=== PATIENT | female | born 1960 | race Caucasian/White ===

== ENCOUNTER 2023-12-27 14:03 | Emergency (ER) | payer OTHER, SELFPAY ==
[2023-12-27 14:30] VITALS: BP 154/73; PULSE 106; RESP 18; TEMP 37.1; O2SAT 100; BMI 19.7
--- NOTE | 2023-12-27 15:08 | ED_ITS ---
HPI - Animal Bite General Chief Complaint: Animal Bite Stated Complaint: dog bite on finger Time Seen by Provider: 12/27/23 17:01 Source: patient Mode of arrival: ambulatory Limitations: no limitations History of Present Illness HPI narrative: Patient is a 63-year-old right-hand dominant female presenting to the emergency department with complaint of dog bite to left middle finger. Patient states she was walking her small dog earlier today when a large dog came over and began attacking her dog. When patient attempted to help her dog, she was bit by the unknown dog. She brought her dog to the [facility] and states that the dog which bit her was taken by [place] animal control to be quarantined. She believes her tetanus is up-to-date within the last 2 years but will attempt to check her electronic medical records while in the ED. Complains of pain, tingling, and swelling to distal tip of left middle finger. Patient also reports abrasions to bilateral knees from falling to the ground during the in cident. MD complaint: animal bite Onset (ago): hour(s) Animal: dog Description of animal: unknown animal Mechanism: bite Location - Extremities: left: hand (3rd finger) Pain description: dull Context: other (unknown dog attacking patient's dog) Associated symptoms: bleeding Related Data Previous Rx's Medication Instructions Recorded amoxicillin 875 mg-potassium 1 tab PO BID #13 tabs 12/27/23 clavulanate 125 mg tablet Allergies Allergy/AdvReac Type Severity Reaction Status Date / Time No Known Allergies Allergy Verified 12/27/23 14:36 Review of Systems Review of Systems: As per HPI. Yes all other systems are reviewed and are negative Constitutional: Constitutional: Reports as per HPI [facility] Social History Social History Advance Directives: No Advance Directives Information Provided: No Physical Exam ED Vital Signs: Vital Signs - 24 hr 12/27/23 14:30 12/27/23 17:39 Temperature 98.8 F Pulse Rate 106 H 68 Respiratory Rate 18 14 Blood Pressure 154/73 H 107/68 Pulse Oximetry 100 99 Oxygen Delivery Method Room Air Room Air BMI result Body Mass Index 19.7 Vital signs have been reviewed and appear to be correct. Blood pressure elevated. Heart rate mildly tachycardic. Respiratory rate normal. Temperature normal. Oxygen saturation normal. Const General: cooperative, healthy appearing and no acute distress Orientation/consciousness: oriented to person, oriented to place, oriented to time and patient oriented x3 Limitations: no limitations HENMT Head: Yes normocephalic and Yes atraumatic Ears: external ears normal General nose exam: Normal external nose present Face and sinus: Yes face symmetric Mouth: oropharynx normal and moist mucous membranes Throat: Yes uvula midline Eyes Pupils: Equal, round and reactive pupils present Neck Neck: Yes normal visual inspection and Yes supple Resp Effort & Inspection: normal respiratory effort and able to speak in complete sentences Auscultation: clear to auscultation bilaterally Cardio Rate: regular rate Rhythm: regular rhythm Heart sounds: S1 normal heart sound present and S2 normal heart sound present GI Palpation (GI): Soft to palpation and nontender Auscultation: normoactive bowel sounds General: Yes no CVA tenderness Back/Spine/Pelvis Back: no CVA tenderness Skin General skin exam: elasticity normal and turgor normal Neuro General: oriented to person, oriented to place, oriented to time, patient oriented x3, moves all extremities, no focal motor deficits and CN's II-XI intact bilaterally Cranial nerves: Yes Equal, round and reactive pupils present Cognition (Neuro): normal cognition Extrem General: Yes full ROM, Yes no pedal edema and Yes no calf tenderness Left upper extremity: hand Details: neuromotor exam normal, neurosensory exam normal, normal ROM of fingers, swelling Location: of the 3rd digit Location: at the distal phalanx and puncture wound (radial and ulnar aspects of distal tip of 3rd finger) Psych Mental Status: mental status grossly normal Affect: normal affect Thought process: Normal thought process present Course Course Course Narrative: This is an RME: Additional HPI, ROS, PE not included below will be deferred to primary provider. Patient is a 63 old female who presents emergency department for evaluation of dog bite to left middle finger from unknown dog. Unaware of date of last tetanus vaccination. Medications Administered Discontinued Medications Generic Name Dose Route Start Last Admin Trade Name Freq PRN Reason Stop Dose Admin Amoxicillin/Clavulanate Potassium 875 mg 12/27/23 16:49 12/27/23 17:26 Amoxicillin/Potassium Clav 875 Mg Tablet PO 12/27/23 16:50 875 mg ONCE ONE Administration Medical Decision Making Medical Decision Making MDM Narrative: Patient is a 63-year-old right-hand dominant female presenting to the emergency department with complaint of dog bite to left middle finger. On exam patient is awake, A+Ox3, BP elevated, slightly tachycardic, VS otherwise WNL, afebrile, normal neurological exam without focal deficits, physical exam findings as ab ove. Given reported symptoms and physical exam findings, initial differential includes dog bite, potential rabies exposure, cellulitis. Mandatory reporting forms completed. Patient given first dose of Augmentin in the ED. Rabies vaccine and immunoglobulin not indicated at this time. Patient reporting that her Tdap was updated 2 years ago when she had a laceration to her hand. Discussed with patient that she should remain in contact with [place] [facility] to ensure that the attacking dog does not develop symptoms over the next ten days, and that she should return immediately if this occurs. Symptoms for which patient should return were discussed at bedside with patient and . All questions answered. Patient verbalized understanding of and agreement with plan. Differential Diagnosis Differential Diagnoses: The differential diagnosis associated with the presentation includes As per MDM. Independent Historian Clinical information obtained from an independent historian. History obtained from or confirmed by: Spouse External Record Review External record reviewed: Inpatient record, Office record and Outpatient record Prescription Management I considered prescription management with: Antibiotic Discharge Plan Discharge Clinical Impression: Dog bite Patient Disposition: Home, Self-Care Instructions: Animal Bite (ED), Rabies (ED) Additional Instructions: You were evaluated in the emergency department today for a dog bite. Please keep the area surrounding the wound clean and dry and assess the area daily for signs of infection. You were prescribed antibiotics today, please take the antibiotics prescribed to you in full, as directed. If you are notified by [place] [employer] that the dog which bit you displays any symptoms of rabies, or dies within the next ten days, you should return to the emergency department immediately for treatment. Please follow-up with your primary care physician this week as well. Return to the emergency department if you experience worsening or uncontrolled pain, spreading redness, swelling, fevers 100.4? F or greater, pus from your bite, or for any other concerning symptoms. Prescriptions: New amoxicillin-pot clavulanate 875-125 mg tablet 1 tab PO BID Qty: 13 0RF Rx Instructions: You were given the 1st dose of this medication in the emergency department. Please take the next dose tomorrow morning, 12/28/2023.
--- NOTE | 2023-12-27 16:42 | PC.NURSE ---
patient states that she was walking her small dog when another larger dog attacked her dog. when trying to help her dog patient was bit by the unkown larger dog to her left middle finger. Patient states that the dog she was bitten by was taken by animal control and is in custody for 10 days. unsure vaccination status.
[2023-12-27] MEDS: Amoxicillin/Potassium Clav 875 MG TABLET PO (17:26)
--- NOTE | 2023-12-27 17:36 | PC.NURSE ---
wound to left hand middle finger cleansed
[2023-12-27 17:39] VITALS: RESP 14
--- NOTE | 2023-12-27 18:32 | PC.NURSE ---
animal bite form faxed to [place] [facility].
== END 2023-12-27 17:50 | disposition home or self-care (01) ==
PROVIDERS: Emergency Provider Emergency Medicine
DX: S61.253A Open bite of left middle finger without damage to nail, initial encounter (principal); W54.0XXA Bitten by dog, initial encounter; Y93.K1 Activity, walking an animal; Y92.414 Local residential or business street as the place of occurrence of the external cause; Y99.9 Unspecified external cause status
CPT/HCPCS: 99283; 99284